=== PATIENT | female | born 1970 | race Caucasian/White ===

== ENCOUNTER → 2017-01-16 10:15 | Outpatient (CLI) | payer MEDICAID | END | disposition home or self-care (01) | LOC: D.NM 08:00 | DX: R10.11 Right upper quadrant pain (principal) ==

== ENCOUNTER 2018-07-06 10:55 | Emergency (ER) | payer MEDICAID ==
[~2018-07-06] VITALS: Ht 165.1 cm; Wt 75.3 kg
[2018-07-06 11:08] VITALS: Ht 165.1 cm; Wt 75.3 kg
[2018-07-06] MEDS ORDERED: CATAPRES0.1 MG (11:09)
[2018-07-06] MEDS ORDERED: PRAVACHOL20 MG (11:09)
[2018-07-06] MEDS ORDERED: OMEPRAZOLE20 M1 (11:09)
[2018-07-06] MEDS ORDERED: ATIVAN0.5 MG (11:09)
[2018-07-06] MEDS ORDERED: PREDNISONE10 MG PO (12:56)
[2018-07-06] MEDS ORDERED: PEPCID AC20 MG PO (12:56)
[2018-07-06 13:10] VITALS: BP 129/90
[2018-07-07] MEDS ORDERED: STERAPRED 5MG 65 M1 PO (21:38)
[2018-07-07] MEDS ORDERED: VISTARIL25 MG PO (21:39)
== END 2018-07-06 13:10 | disposition home or self-care (01) ==
LOC: D.ER 10:55
DX: T78.40XA Allergy, unspecified, initial encounter (principal); X58.XXXA Exposure to other specified factors, initial encounter

== ENCOUNTER 2018-07-07 17:36 | Emergency (ER) | payer MEDICAID ==
[~2018-07-07] VITALS: Ht 165.1 cm; Wt 75.5 kg
[~2018-07-07 17:36] MED LIST: ATIVAN0.5 MG; CATAPRES0.1 MG; OMEPRAZOLE20 M1; PEPCID AC20 MG PO; PRAVACHOL20 MG; PREDNISONE10 MG PO
[2018-07-07 17:52] VITALS: Ht 165.1 cm; Wt 75.5 kg
[2018-07-07 19:53] LABS: BASOPHILS 0 % (0-2); EOSINOPHILS 0 % (0-7); HEMATOCRIT 39.7 % (36.0-48.0); HEMOGLOBIN 14.1 g/dL (12-16); IMMATURE GRANULOCYTES 0.7 % (0-5); LYMPHOCYTES 11.8 % (15-50); MCH 31.3 pg (26.0-34.0); MCHC 35.5 g/dL (31.0-37.0); MEAN PLATELET VOLUME 10.7 fL (7.4-10.4); MONOCYTES 5.9 % (2-11); NEUTROPHILS 81.6 % (40-80); PLATELET COUNT 337 10x3/uL (130-400); RBC 4.51 10x6/uL (4.00-5.40); RDW 12.3 % (11.5-14.5); WBC 21.4 10x3/uL (4.8-10.8)
[2018-07-07 20:09] LABS: ALBUMIN 3.6 g/dL (3.4-5.0); ALKALINE PHOSPHATASE 73 U/L (46-116); ALT (SGPT) 32 U/L (10-68); BILIRUBIN - TOTAL 0.32 mg/dL (0.2-1.3); CALC OSMOLALITY 282 mosm/kg (275-300); CALCIUM 8.9 mg/dL (8.5-10.1); CARBON DIOXIDE 25.9 mmol/L (21.0-32.0); CHLORIDE - SERUM 106 mmol/L (98-107); CREATININE - SERUM 0.8 mg/dL (0.6-1.3); GLUCOSE 115 mg/dL (74-106); PROTEIN - SERUM 7.7 g/dL (6.4-8.2); SODIUM 142 mmol/L (136-145); UREA NITROGEN 11 mg/dL (7-18); eGFR NON AFRICAN AMERICAN 81 mL/min (90-120)
[2018-07-07 20:58] LABS: APPEARANCE CLEAR (CLEAR); BILIRUBIN NEGATIVE (NEGATIVE); COLOR YELLOW (YELLOW); GLUCOSE NEGATIVE (NEGATIVE); KETONE NEGATIVE (NEGATIVE); NITRITE NEGATIVE (NEGATIVE); PROTEIN NEGATIVE (NEGATIVE); UROBILINOGEN NORMAL (NORMAL)
[2018-07-07] MEDS ORDERED: STERAPRED 5MG 65 M1 PO (21:38)
[2018-07-07] MEDS ORDERED: VISTARIL25 MG PO (21:39)
[2018-07-07 21:51] VITALS: BP 129/83
== END 2018-07-07 21:51 | disposition home or self-care (01) ==
LOC: D.ER 17:36
PROVIDERS: Family Medicine
DX: L50.9 Urticaria, unspecified (principal); T78.40XA Allergy, unspecified, initial encounter; X58.XXXA Exposure to other specified factors, initial encounter; R05 Cough

== ENCOUNTER 2018-10-29 21:53 | Observation (INO) | payer MEDICAID ==
[~2018-10-29] VITALS: Ht 165.1 cm; Wt 79.1 kg
--- NOTE | ~2018-10-29 | HEMODYNAMI ---
PATIENT:RADHA BARRAZA MEDICAL RECORD: [id number] : 72 [facility]ATION[facility] [id number] ADMISSION DATE: 10/29/18 Generatedon:10/30/201814:04 Patient name: RADHA BARRAZA Patient #: [id number] SSN: : 1970 Date of study: 10/30/2018 Page: Of Hemodynamic Procedure Report Patient Data Patient Demographics Procedure consent was obtained First Name: RADHA Gender: Female Last Name: CHRISTI : 1970 Middle Initial: E Age: 48 year(s) Patient #: [id number] Race: Additional ID: [id number] Contact details Address: [address] [place] [address] State: [place] City: [place] Zip code: [address] Past Medical History Allergies Allergen Reaction Date Comments Reported Other allergy 10/30/2018 Vancomycin Admission Admission Data Admission Date: 10/29/2018 Admission Time: 23:13 Room #: D[facility] Lab Results Lab Result Date: 10/30/2018 Lab Result Time: 0:00 Biochemistry Name Units Result Min Max BUN mg/dl 20 --(----)*- 7 18 Creatinine mg/dl 0.8 --(-*--)-- 0.6 1.3 CBC Name Units Result Min Max Hemoglobin g/dl 13.6 --(*---)-- 13.5 17.5 Procedure Procedure Types Cath Procedure Diagnostic Procedure LHC LH w/Coronaries PCI Procedure Coronary Stent Coronary Stent Initial Procedure Description Procedure Date Procedure Date: 10/30/2018 Procedure Start Time: 13:47 Procedure End Time: 14:02 Procedure Staff Name Function Mook Cabrera MD Performing Physician Kelly Joaquin RT Monitor Shana Mcnulty RT Scrub Adolfo Morrison RT Scrub Kole Grey RN Nurse Procedure Data Cath Procedure Fluoroscopy Diagnostic fluoroscopy Total fluoroscopy Time: 3.6 time: 3.6 min min Diagnostic fluoroscopy Total fluoroscopy dose: 320 dose: 320 mGy mGy Contrast Material Contrast Material Type Amount (ml) Isovue 300 71 Entry Location Entry Primary Successful Side Size Upsize Upsize Entry Closure [place] ccessful Closure Location (Fr) 1 (Fr) 2 (Fr) Remarks Device Remarks Radial Right 6 Fr Mechanical artery Short Compression Estimated blood loss: 10 ml Diagnostic catheters Device Type Used For End Catheter Placement DIAGNOSTIC [place] 110cm 5 Procedure Fr catheter ([id number]) Procedure Complications No complications Procedure Medications Medication Administration Route Dosage Oxygen etCO2 Nasal cannula 2 l/min Lidocaine 2% added to field 20 Heparin Flush Bag added to field 2 bags (1000units/500ml NS) 0.9% NaCl I.V. 100 ml/hr Radial Cocktail I.A. 1 syringe (Verapomil 2mg/Nitro 400mcg/Heparin 1500units) Versed I.V. 2 mg Fentanyl I.V. 100 mcg Versed I.V. 2 mg Fentanyl I.V. 100 mcg Heparin Bolus I.V. 4000 units Lopressor I.V. 5 mg Plavix P.O. 75 mg Hemodynamics Rest HGB: 13.6 (g/dl) Heart Rate: 75 (bpm) Snapshots Pre Cath Intra NCS Post Cath Vital Signs Time Heart Resp SPO2 etCO2 NIBP (mmHg) Rhythm Pain Sedation Rate (ipm) (%) (mmHg) Status Level (bpm) 13:17:58 76 18 98 29.9 132/73(95) NSR 0 (11) 10(A) , No pain 13:22:11 75 24 95 33.7 142/78(96) NSR 0 (11) 10(A) , No pain 13:26:29 84 19 95 34.4 162/77(118) NSR 0 (11) 10(A) , No pain 13:31:47 79 29 97 27.5 144/74(104) NSR 0 (11) 10(A) , No pain 13:36:07 80 25 96 29.1 136/74(89) NSR 0 (11) 10(A) , No pain 13:40:23 92 14 99 37.5 157/79(123) NSR 0 (11) 10(A) , No pain 13:44:45 82 14 100 36 150/81(114) NSR 0 (11) 10(A) , No pain 13:49:06 91 22 98 30.6 119/71(101) NSR 0 (11) 9(A) , No pain 13:53:18 102 16 98 38.3 122/67(100) NSR 0 (11) 9(A) , No pain 13:57:27 96 15 97 32.9 134/80(107) NSR 0 (11) 9(A) , No pain 14:02:39 92 15 99 36.7 141/76(101) NSR 0 (11) 10(A) , No pain Medications Time Medication Route Dose Verified Delivered Reason Not es Effectiveness by by 13:16:19 Oxygen etCO2 2 l/min Mook Sharif used for Nasal Deborah Grey RN procedure cannula 13:16:26 Lidocaine 2% added 20ml Mook Delvalle for local to vial Deborah Cabrera MD anesthetic field 13:16:33 Heparin Flush added 2 bags Mook Delvalle used for Bag to Deborah Cabrera MD procedure (1000units/500ml field NS) 13:16:42 0.9% NaCl I.V. 100 Mook Sharif Per physician ml/hr Deborah Grey RN 13:47:10 Versed I.V. 2 mg Mook Sharif for sedation Deborah Grey RN 13:47:17 Fentanyl I.V. 100 mcg Mook Sharif for sedation Deborah Grey RN 13:49:04 Radial Cocktail I.A. 1 Mook Delvalle for (Verapomil syringe Deborah Cabrera MD vasodilation 2mg/Nitro 400mcg/Heparin 1500units) 13:50:34 Versed I.V. 2 mg Mook Sharif for sedation Deborah Grey RN 13:50:38 Fentanyl I.V. 100 mcg Mook Sharif for sedation Deborah Grey RN 13:55:49 Heparin Bolus I.V. 4000 Mook Sharif for gage ified units Deborah Grey RN anticoagulation with dr cabrera 13:58:02 Lopressor I.V. 5 mg Mook Sharif Per physician Deborah Grey RN 14:01:38 Plavix P.O. 75 mg Mook Sharif for Deborah Grey RN antiplatelet therapy Procedure Log Time Note 12:52:56 Informed consent obtained and on chart 12:53:01 Diagnostic Cath Status : Elective 12:53:26 Kelly LAWSON(R) sent for patient. Start room use. 12:53:27 Time tracking: Regular hours (M-F 7:00 - 5:00) 12:53:31 Plan of Care:Hemodynamics will remain stable., Cardiac rhythm will remain stable., Comfort level will be maintained., Respiratory function will remain adequate., Patient/ family verbilizes understanding of procedure., Procedure tolerated without complication., Recovers from procedure without complications.. 12:59:26 Patient received from ED to CCL 2 Alert and oriented. Tansferred to table in Supine position. 12:59:28 Warm blankets applied, and jennifer hugger turned on for patient comfort. 12:59:28 Correct patient and procedure confirmed by team. 12:59:29 ECG and BP/O2 sat monitors applied to patient. 13:16:19 Oxygen 2 l/min etCO2 Nasal cannula was administered by Kole Grey RN; used for procedure; 13:16:26 Lidocaine 2% 20ml vial added to field was administered by Mook Cabrera MD; for local anesthetic; 13:16:33 Heparin Flush Bag (1000units/500ml NS) 2 bags added to field was administered by Mook Cabrera MD; used for procedure; 13:16:42 0.9% NaCl 100 ml/hr I.V. was administered by Kole Grey RN; Per physician; 13:16:45 Vital chart was started 13:19:43 Baseline sample Acquired. 13:19:47 Rhythm: sinus rhythm 13:19:48 Full Disclosure recording started 13:19:54 H&P Date Dictated: 10/29/2018 Within 30 days and on chart., H&P Addendum completed by physician on day of procedure. (MUST COMPLETE FOR ALL OUTPATIENTS). 13:19:56 Pre-procedure instructions explained to patient. 13:19:59 Family in waiting room. 13:20:04 Patient NPO since Midnight. 13:20:22 Patient allergic to Other allergyVancomycin 13:20:25 Is the patient allergic to Iodine/contrast media? No. 13:20:27 Was the patient premedicated? Yes 13:20:28 Is patient on blood thinner?Yes 13:20:31 ACC The patient was administered the following blood thiners within the last 24 hours: ACCPlavix 13:20:50 Patient diabetic? No. 13:20:55 Snore? Yes 13:20:56 Sleep apnea? No 13:21:01 Dentures? No ? 13:21:17 IV patent on arrival in left forearm with 0.9% NaCl at [facility]. 13::45 Lab Result : Hemoglobin 13.6 g/dl 13::45 Lab Result : Creatinine 0.8 mg/dl 13::45 Lab Result : BUN 20 mg/dl 13::48 Lab results completed and on chart. 13:29:53 Right groin area was prepped with chlora-prep and draped in sterile fashion 13::58 Right Radial area was prepped with chlora-prep and draped in sterile fashion 13::59 Alarms reviewed by R. N. 13::59 Sharps counted by scrub and verified by R.N. 13:30:01 Physician paged 13:43:41 Zero performed for pressure channel P1 13:44:05 Zero performed for pressure channel P1 13:46:39 Physician arrived 13:46:40 --------ALL STOP TIME OUT------ 13:46:40 Final Timeout: patient, procedure, and site verified with staff and physician. All members of the team are in agreement. 13:46:43 Right Radial & Right Groin site verified by team. 13:46:48 Fire Safety Assessment: A--An alcohol-based skin anteseptic being used preoperatively., C--Open oxygen or nitrous oxide is being used., D--An ESU, laser, or fiber-optic light is being used. 13:46:52 Physical assessment completed. ASA score P 2 - A patient with mild systemic disease as per Mook Cabrera MD. 13:46:56 Sedation plan: IV Moderate Sedation Medication:Versed, Fentanyl 13:47:00 Use device set Radial Dx or PCI 13:47:03 Procedure started. 13:47:10 Versed 2 mg I.V. was administered by Kole Grey RN; for sedation; 13:47:17 Fentanyl 100 mcg I.V. was administered by Kole Grey RN; for sedation; 13:47:34 Local anesthetic to right radial artery with Lidocaine 2% by Mook Cabrera MD.INITIAL ACCESS ONLY 13:47:51 A 6 Fr Short sheath was inserted into the Right Radial artery 13:48:29 ACIST Syringe (50138) opened to sterile field. 13:48:30 Medline Cath Pack ([id number]) opened to sterile field. 13:48:30 Bag Decanter () opened to sterile field. 13:48:31 DIAGNOSTIC WIRE .035 260cm J wire (567916) opened to sterile field. 13:48:31 ACIST Hand Control (13966) opened to sterile field. 13:48:32 ACIST Manifold (03423) opened to sterile field. 13:48:33 Tegaderm 4 x 4 (1626W) opened to sterile field. 13:48:34 MBrace Wrist Support ([id number]) opened to sterile field. 13:48:37 SHEATH 6FR Slender (03-9821) opened to sterile field. 13:48:43 A DIAGNOSTIC [place] 110cm 5 Fr catheter (082226) was advanced over the wire and used for Procedure. 13:49:04 Radial Cocktail (Verapomil 2mg/Nitro 400mcg/Heparin 1500units) 1 syringe I.A. was administered by Mook Cabrera MD; for vasodilation; 13:49:38 LV angiography performed. 13:50:25 EF : 60 % 13:50:34 Versed 2 mg I.V. was administered by Kole Grey RN; for sedation; 13:50:38 Fentanyl 100 mcg I.V. was administered by Kole Grey RN; for sedation; 13:50:47 RCA angiography performed. 13:52:16 Catheter removed. 13:52:25 GUIDE 6FR XBC 3 ([id number]) opened to sterile field. 13:52:31 Proceeding to intervention. 13:52:48 6 Fr XBC3 guide catheter was inserted over the wire 13:53:32 whisper wire advanced. 13:53:34 Wire advanced across lesion. 13:53:57 INFLATOR Merit BasixCompak (QO2612) opened to sterile field. 13:55:49 Heparin Bolus 4000 units I.V. was administered by Kole Grey RN; for anticoagulation; verified with dr cabrera 13:57:17 WHISPER 300cm guide wire ([id number]) opened to sterile field. 13:57:57 Place stent Inflation Number: 1 A INTEGRITY OTW 2.5 X 22 stent ([id number]) was prepped and advanced across the Mid LAD. The stent was deployed at 13 PILAR for 0:04 (min:sec). 13:58:02 Lopressor 5 mg I.V. was administered by Kole Grey RN; Per physician; 14:00:25 ZEPHYR REGULAR TR BAND NO COST(129978) opened to sterile field. 14:00:33 Stent catheter was removed intact over wire. 14:00:33 Wire removed. 14:00:35 Guide catheter removed. 14:00:45 Sheath removed intact; hemostasis achieved with Mechanical Compression to the Right Radial artery. 14:00:47 Procedure ended.(Physican Out) 14:00:56 Fluoroscopy time 03.60 minutes. 14:01: Fluoroscopy dose: 320 mGy 14:01: Flurop Dose total: 320 14:01:07 Contrast amount:Isovue 300 71ml. 14:01:08 Sharps counted by scrub and verified by R.N. 14:01:12 TR band inflated with 12cc of air. 14:01:13 Insertion/operative site no bleeding no hematoma. 14:01:15 Post Procedure Pulses reassessed and unchanged 14:01:18 Post procedure rhythm: unchanged. 14:01:21 Estimated blood loss: 10 ml 14:01:38 Plavix 75 mg P.O. was administered by Kole Grey RN; for antiplatelet therapy; 14:01:43 Procedure type changed to Cath procedure, Diagnostic procedure, LHC, LHC w/Coronaries, PCI procedure, Coronary Stent, Coronary Stent Initial 14:01:45 Procedure and supply charges have been captured, reviewed, submitted and are correct. 14:02:10 Procedure Complication : No complications 14:02:13 Vital chart was stopped 14:02:13 See physician's report for complete and final results. 14:02:15 Report given to Pre/Post Procedure Room. 14:02:18 Patient transfered to Pre/Post Procedure Room with Stretcher. 14:02:20 Procedure ended. 14:02:20 Full Disclosure recording stopped 14:02:24 End room use (Document Last) 14:02:32 ACC-PCI Only Patient was given prescriptions, or instructed by Mook Cabrera MD to start/continue the following medications upon discharge: Plavix Intervention Summary Intervention Notes Time ActionType Lesion and Equipment Action# Pressure Duration Attributes Used 13:57:57 Place stent Mid LAD INTEGRITY 1 13 00:04 OTW 2.5 X 22 stent ([id number]) Device Usage Item Name Manufacture Quantity Catalog Hospital Part Current Minima l Lot# / Number Charge Number Stock Stock Serial# Code ACIST Acist 1 30312 909229 975933 280827 20 Syringe Medical (09470) Systems Inc Medline Cath Medline 1 [id number] 381114 50671 409221 5 Pack ([id number]) Bag Decanter Microtek 1 2001S 204554 25775 075498 5 (2001S) Medical Inc. DIAGNOSTIC St Jonathan 1 119124 900673 925153 653171 30 WIRE .035 260cm J wire (425087) ACIST Hand Acist 1 11644 385382 064274 937235 5 Control Medical (74465) Systems Inc ACIST Acist 1 92388 300921 044677 095292 5 Manifold Medical (34591) Systems Inc Tegaderm 4 x 3M 1 1626W 895445 478681 956916 5 4 (1626W) MBrace Wrist Advanced 1 140-0250-00 299474 43069 813481 5 Support Vascular (359849858) Dynamics SHEATH 6FR Terumo 1 [id number] 124627 403047 957423 5 Slender (80-1060) DIAGNOSTIC Terumo 1 405013 642069 811034 310899 5 [place] 110cm 5 Fr catheter (264120) GUIDE 6FR Cardinal 1 [id number] 694633 66330 641755 5 XB 3 Health (55886269) INFLATOR Merit 1 FK4588 630589 122100 097631 15 [facility] Medical BasixCompak (GE3596) WHISPER Diehl 1 [id number] 526554 052302 686574 5 300cm guide Vascular wire ([id number]) INTEGRITY Medtronic 1 [id number] 210751 572661 223238 1 [id number] OTW 2.5 X 22 stent ([id number]) ZEPHYR Cardinal 1 411165 207221 285634 5 REGULAR TR Health BAND NO COST(111086) Signature Audit [place] Stage Time Signature Unsigned Intra-Procedure 10/30/2018 Kelly Joaquin 2:04:33 PM RT(R) Signatures Monitor : Kelly Joaquin Signature : RT Date : Time : [address] [place] [address]
[~2018-10-29 21:53] MED LIST changes: +STERAPRED 5MG 65 M1 PO; +VISTARIL25 MG PO
[2018-10-29] MEDS ORDERED: CELEXA10 MG PO (22:12)
[2018-10-29 22:35] LABS: BASOPHILS 0.1 % (0-2); EOSINOPHILS 1.1 % (0-7); HEMATOCRIT 38.8 % (36.0-48.0); HEMOGLOBIN 13.6 g/dL (12-16); IMMATURE GRANULOCYTES 0.5 % (0-5); LYMPHOCYTES 28.3 % (15-50); MCH 30.8 pg (26.0-34.0); MCHC 35.1 g/dL (31.0-37.0); MEAN PLATELET VOLUME 10.2 fL (7.4-10.4); PLATELET COUNT 328 10x3/uL (130-400); RBC 4.41 10x6/uL (4.00-5.40); RDW 12.2 % (11.5-14.5); WBC 16.6 10x3/uL (4.8-10.8)
[2018-10-29 22:41] LABS: APTT 30.3 SECONDS (22.8-39.4); INR 0.95 (0.85-1.17); PROTIME 12.2 SECONDS (11.6-15.0)
[2018-10-29 22:50] LABS: ALBUMIN 3.2 g/dL (3.4-5.0); ALKALINE PHOSPHATASE 82 U/L (46-116); ALT (SGPT) 39 U/L (10-68); BILIRUBIN - TOTAL 0.59 mg/dL (0.2-1.3); CALC OSMOLALITY 279 mosm/kg (275-300); CALCIUM 8.4 mg/dL (8.5-10.1); CARBON DIOXIDE 25.5 mmol/L (21.0-32.0); CHLORIDE - SERUM 102 mmol/L (98-107); CREATININE - SERUM 0.8 mg/dL (0.6-1.3); GLUCOSE 113 mg/dL (74-106); POTASSIUM - SERUM 3.9 mmol/L (3.5-5.1); PROTEIN - SERUM 6.8 g/dL (6.4-8.2); SODIUM 138 mmol/L (136-145); UREA NITROGEN 20 mg/dL (7-18); eGFR NON AFRICAN AMERICAN 81 mL/min (90-120)
[2018-10-29 23:02] LABS: CKMB 0.2 U/L (0.0-3.6); CREATINE KINASE 18 UL (21-215)
[2018-10-29 23:03] LABS: TROPONIN-I < 0.017 ng/mL (0.000-0.060)
--- NOTE | 2018-10-29 23:06 | NUR ---
PT IN WITH C/O CHEST PAIN THAT STARTED YESTERDAY, WORSE TODAY, SPOUSE AT BEDSIDE. STATES THE PAIN RADIATES IN BETWEEN SHOULDER BLADES, HAS A FAMILY HISTORY OF HEART DISEASE. JESUS OLIVAREZ,
[2018-10-29 23:07] VITALS: BP 115/79
--- NOTE | 2018-10-29 23:58 | NUR ---
REPORT CALLED TO ER NURSE
[2018-10-30 00:36] VITALS: BP 123/78
[2018-10-30 01:00] VITALS: Ht 165.1 cm; Wt 79.1 kg
[2018-10-30] MEDS ORDERED: ATIVAN1 MG PO (01:11)
[2018-10-30] MEDS ORDERED: CATAPRES0.1 MG PO (01:12)
[2018-10-30] MEDS ORDERED: CELEXA20 MG PO (01:12)
[2018-10-30] MEDS ORDERED: OMEPRAZOLE40 MG PO (01:13)
[2018-10-30] MEDS ORDERED: PRAVACHOL20 MG PO (01:13)
[2018-10-30 04:00] VITALS: BP 110/72
[2018-10-30 05:02] LABS: BASOPHILS 0.2 % (0-2); EOSINOPHILS 1.6 % (0-7); HEMOGLOBIN 13.6 g/dL (12-16); IMMATURE GRANULOCYTES 0.5 % (0-5); MCH 30.4 pg (26.0-34.0); MCV 89.5 fL (80.0-100.0); MEAN PLATELET VOLUME 10.4 fL (7.4-10.4); MONOCYTES 6.1 % (2-11); NEUTROPHILS 59.6 % (40-80); PLATELET COUNT 315 10x3/uL (130-400); RBC 4.47 10x6/uL (4.00-5.40); RDW 12.3 % (11.5-14.5); WBC 14.6 10x3/uL (4.8-10.8)
[2018-10-30 05:32] LABS: ALBUMIN 3.1 g/dL (3.4-5.0); ALKALINE PHOSPHATASE 80 U/L (46-116); ALT (SGPT) 39 U/L (10-68); BILIRUBIN - TOTAL 0.57 mg/dL (0.2-1.3); CALC OSMOLALITY 281 mosm/kg (275-300); CALCIUM 8.5 mg/dL (8.5-10.1); CARBON DIOXIDE 27.3 mmol/L (21.0-32.0); CHLORIDE - SERUM 105 mmol/L (98-107); CKMB 0.5 U/L (0.0-3.6); CREATINE KINASE 20 UL (21-215); CREATININE - SERUM 0.8 mg/dL (0.6-1.3); GLUCOSE 107 mg/dL (74-106); POTASSIUM - SERUM 4.7 mmol/L (3.5-5.1); PROTEIN - SERUM 6.8 g/dL (6.4-8.2); SODIUM 140 mmol/L (136-145); TROPONIN-I < 0.017 ng/mL (0.000-0.060); UREA NITROGEN 20 mg/dL (7-18); eGFR NON AFRICAN AMERICAN 81 mL/min (90-120)
[2018-10-30 07:49] VITALS: BP 117/78
--- NOTE | 2018-10-30 08:45 | NUR ---
CONSENTS SIGNED FOR [facility]. WILL CONT. PLAN OF CARE.
[2018-10-30 11:25] VITALS: BP 113/75
[2018-10-30 11:38] LABS: CKMB 0.6 U/L (0.0-3.6); CREATINE KINASE 16 UL (21-215); TROPONIN-I < 0.017 ng/mL (0.000-0.060)
--- NOTE | 2018-10-30 13:11 | NUR ---
PRE-OPS GIVEN. TO AUDIT LEAD BY BED.
[2018-10-30] MEDS ORDERED: BAYER CHEWABLE81 MG PO (14:11)
[2018-10-30] MEDS ORDERED: PLAVIX75 MG PO (14:11)
--- NOTE | 2018-10-30 14:30 | NUR ---
RIGHT RADIAL Z BAND IN PLACE. NO BLEEDING/HEMATOMA NOTED. HEAD OF BED INC TO 30 DEGREES. VSS. SET UP WITH SANDWICH TRAY AND DRINK.
--- NOTE | 2018-10-30 15:00 | NUR ---
RIGHT WRIST Z BAND IN PLACE. NO BLEEDING/HEMATOMA NOTED. DENIES NAUSEA
--- NOTE | 2018-10-30 15:30 | NUR ---
PT REPORTS SHE NEEDS TO URINATE. REFUSING TO USE BEDPAN. SHE STATES SHE WILL HOLD IT UNTIL SHE CAN GET UP AND USE THE RESTROOM.
--- NOTE | 2018-10-30 16:33 | NUR ---
PT C/O PAIN IN RIGHT WRIST AT BAND SITE. REMOVED 1cc OF AIR. PT REPORTS THAT IT FEELS BETTER. NO BLEEDING OR HEMATOMA NOTED.
--- NOTE | 2018-10-30 16:38 | NUR ---
PT C/O RIGHT WRIST PAIN. REMOVED 2cc OF AIR FROM Z BAND. PT C/O INDIGESTION. NO BLEEDING/HEMATOMA NOTED AT RIGHT WRIST SITE.
--- NOTE | 2018-10-30 17:03 | NUR ---
PT GIVEN GI COCTAIL PER MD ORDER. 3cc OF AIR REMOVED FROM Z BAND. NO BLEEDING OR HEMATOMA NOTED. TOLERATING WELL. PT UP TO RESTROOM AND VOIDED WITHOUT DIFFICULTY.
--- NOTE | 2018-10-30 17:25 | NUR ---
RIGHT AC PIV D/C'D WITH CATH TIP INTACT. PT TOLERATED WELL. 3cc OF AIR REMOVED FROM Z BAND. NO BLEEDING/HEMATOMA NOTED.
--- NOTE | 2018-10-30 17:37 | NUR ---
DISCUSSED DISCHARGE INSTRUCTIONS WITH PT AND PT'S FAMILY. THEY VOICED UNDERSTANDING. RIGHT RADIAL Z BAND REMOVED AND DRESSING APPLIED. NO BLEEDING/HEMATOMA NOTED.
--- NOTE | 2018-10-30 17:50 | NUR ---
PT TAKEN DOWN TO VEHICLE BY WHEELCHAIR. RIGHT WRIST DRESSING C/D/I. NO S/S OF HEMATOMA NOTED. ALL BELONGINGS IN HAND.
--- NOTE | 2018-11-03 10:45 | OP ---
PATIENT NAME: RADHA BARRAZA MEDICAL RECORD: [id number] :72 LOCATION:[facility] ADMISSION DATE:10/29/18 SURGEON: LAURA RIDDLE MD DATE OF OPERATION: 10/30/2018 DATE OF SERVICE: 10/30/2018 PROCEDURES: 1. PTCA stent LAD. 2. Left heart catheterization. 3. Selective coronary angiography. 4. Left ventriculogram. DESCRIPTION OF PROCEDURE: After informed consent was obtained and after detailed explanation of risks, benefits as well as alternative therapies, the patient elected to proceed with angiogram and angioplasty. The right radial area was prepped and draped in normal sterile fashion. Right radial artery was cannulated via modified Seldinger technique with placement of 6-Belarusian sheath. All catheters exchanged through this sheath. FINDINGS: Left ventriculogram was performed in standard 30-degree [place] view, reveals good cardiac wall motion throughout all segments. Overall ejection fraction is estimated at 70%. SELECTIVE CORONARY ANGIOGRAPHY: 1. Left main is with no significant angiographic disease. 2. Left anterior descending has greater than 80% stenosis in mid vessel. 3. Left circumflex has moderate irregularities, but no flow-limiting stenosis. 4. Right coronary has moderate irregularities, but no flow-limiting stenosis. PTCA STENT OF THE LAD: The stent used was a 2.5 x 22-mm Integrity. Result was 0% residual stenosis. OVERALL IMPRESSION: Successful percutaneous transluminal angioplasty stent of the left anterior descending going from greater than 80% initial stenosis to 0% residual. TRANSINT:[id number] Voice Confirmation ID: [id number] DOCUMENT ID: [id number] LAURA RIDDLE MD at 1045 CC: [id number] DICTATION DATE: 10/30/18 1405 GRANULAR OPERATOR: 10/30/18 1441 DIS IN 10/30/18 [place] [id number]
--- NOTE | 2018-11-03 10:45 | DS ---
PATIENT:RADHA CISNEROS :72 MEDICAL RECORD: [id number] DISCHARGE SUMMARY ADMISSION DATE: 10/29/18 DISCHARGE DATE: 10/30/18 DIAGNOSES: 1. Angina. 2. Percutaneous transluminal coronary angioplasty stent left anterior descending this admission. 3. Shortness of breath, dyspnea on exertion. HOSPITAL COURSE: Mrs. Cisneros presents with anginal symptomatology, found to have significant disease of the LAD, underwent successful PTCA stent of the LAD. Discharged home with the addition of aspirin and Plavix to her medical regimen. Will follow up with [facility] in 1 month. TRANSINT:[id number] Voice Confirmation ID: [id number] DOCUMENT ID: [id number] LAURA RIDDLE MD at 1045 CC: [id number] DICTATION DATE: 10/30/18 1404 STOREPERSON: 10/31/18 0642 DIS IN 10/30/18 [id number] [place] [address]
== END 2018-10-30 17:50 | disposition home or self-care (01) ==
LOC: D.ER 21:53 → OBSVTIME 23:13 → D.M2 23:13 → D.EDHOLD 23:13 → D.M2 23:35 → D.CLR 10-30 14:10
PROVIDERS: Family Medicine; ADMIT Internal Medicine Interventional Cardiology
DX: I25.119 Atherosclerotic heart disease of native coronary artery with unspecified angina pectoris (principal)

== ENCOUNTER 2018-10-31 19:32 | Observation (INO) | payer MEDICAID ==
[~2018-10-31] VITALS: Ht 165.1 cm; Wt 78.6 kg
[~2018-10-31 19:32] MED LIST changes: +ATIVAN1 MG PO; +BAYER CHEWABLE81 MG PO; +CATAPRES0.1 MG PO; +CELEXA10 MG PO; +CELEXA20 MG PO; +OMEPRAZOLE40 MG PO; +PLAVIX75 MG PO; +PRAVACHOL20 MG PO
[2018-10-31 20:00] VITALS: BP 155/96
[2018-10-31 20:34] LABS: BASOPHILS 0.1 % (0-2); EOSINOPHILS 1.2 % (0-7); HEMATOCRIT 39.9 % (36.0-48.0); HEMOGLOBIN 13.7 g/dL (12-16); IMMATURE GRANULOCYTES 0.6 % (0-5); LYMPHOCYTES 31.8 % (15-50); MCH 30.8 pg (26.0-34.0); MCHC 34.3 g/dL (31.0-37.0); MCV 89.7 fL (80.0-100.0); MEAN PLATELET VOLUME 10.3 fL (7.4-10.4); MONOCYTES 5.9 % (2-11); NEUTROPHILS 60.4 % (40-80); PLATELET COUNT 309 10x3/uL (130-400); RBC 4.45 10x6/uL (4.00-5.40); RDW 12.2 % (11.5-14.5); WBC 14.6 10x3/uL (4.8-10.8)
[2018-10-31 20:45] LABS: APTT 29.9 SECONDS (22.8-39.4); INR 0.93 (0.85-1.17)
[2018-10-31 20:46] LABS: D-DIMER-QUANTITATIVE < 0.27 ug/mLFEU (0.20-0.54)
[2018-10-31 20:51] LABS: ALBUMIN 3.1 g/dL (3.4-5.0); ALKALINE PHOSPHATASE 80 U/L (46-116); ALT (SGPT) 33 U/L (10-68); BILIRUBIN - TOTAL 0.38 mg/dL (0.2-1.3); CALC OSMOLALITY 280 mosm/kg (275-300); CALCIUM 8.6 mg/dL (8.5-10.1); CARBON DIOXIDE 24.5 mmol/L (21.0-32.0); CHLORIDE - SERUM 104 mmol/L (98-107); CREATININE - SERUM 0.8 mg/dL (0.6-1.3); GLUCOSE 114 mg/dL (74-106); SODIUM 139 mmol/L (136-145); UREA NITROGEN 18 mg/dL (7-18); eGFR NON AFRICAN AMERICAN 81 mL/min (90-120)
[2018-10-31 20:52] LABS: POTASSIUM - SERUM 3.5 mmol/L (3.5-5.1)
--- NOTE | 2018-10-31 20:55 | NUR ---
NTG X 1 GIVEN
[2018-10-31 21:00] VITALS: BP 145/96
[2018-10-31 21:12] LABS: CKMB 0.9 U/L (0.0-3.6); CREATINE KINASE 18 UL (21-215); MAGNESIUM - SERUM 2.1 mg/dL (1.8-2.4)
[2018-10-31 21:15] LABS: TROPONIN-I 0.091 ng/mL (0.000-0.060)
[2018-10-31 22:36] VITALS: BP 129/91
--- NOTE | 2018-10-31 23:14 | NUR ---
PT ARRIVED VIA W/C FORM ER. NO DISTRESS NOTED. FAMILYA T BEDSIDE.
[2018-10-31 23:32] VITALS: BP 153/100; Ht 165.1 cm; Wt 78.6 kg
--- NOTE | 2018-10-31 23:50 | NUR ---
ADMISSIONA ASSESSMENT, HISTORY AND HOME MED LIST COMPLETED. PT DENIES ANY DISCOMFORT AT THIS TIME. IV TO LAC SL. SR PER CM HR 83. DRESSING TO R WRIST CLEAN,DRY AND INTACT. O2 2LNC. FAMILY AT BEDSIDE. SR UP X2, CALL LIGHT WITHIN REACH.
[2018-10-31 23:55] VITALS: BP 153/100
--- NOTE | 2018-11-01 02:40 | NUR ---
PT RESTING WITH EYES CLOSED. RESP EVEN AND REGULAR. SR UP X2, CALL LIGHT WITHIN REACH.
[2018-11-01 03:31] LABS: CKMB 0.8 U/L (0.0-3.6); CREATINE KINASE 18 UL (21-215)
[2018-11-01 03:53] VITALS: BP 140/86
--- NOTE | 2018-11-01 04:46 | NUR ---
SR PER CM. PT DENIES ANY DISCOMFORT. EKG MACHINE NOT WORKING. EKG DONE VIA TELEMETRY. NSR. SPOUSE AT BEDSIDE.
--- NOTE | 2018-11-01 06:03 | NUR ---
VSS. SR PER CM. PT DENIES ANY DISCOMFORT. NEEDS MET; CALL LIGHT WITHIN REACH.
--- NOTE | 2018-11-01 06:36 | NUR ---
PT HAS C/O RIVAS, CHEST AND BACK PRESSURE. MORPHINE 4MG SIVP GIVEN. WILL CONTINUE TO MONITOR.
[2018-11-01 08:20] VITALS: BP 136/92
--- NOTE | 2018-11-01 09:35 | NUR ---
RESTING QUIETLY NAD NOTED
--- NOTE | 2018-11-01 09:36 | NUR ---
RECEIVED PT WITH EYES CLOSED RESP UNLABORED NAD NOTED
[2018-11-01 09:54] LABS: CKMB 0.9 U/L (0.0-3.6); CREATINE KINASE 19 UL (21-215)
[2018-11-01 09:55] LABS: TROPONIN-I 0.076 ng/mL (0.000-0.060)
[2018-11-01] MEDS ORDERED: LISINOPRIL10 MG PO ×2 (11:17→11:18)
[2018-11-01] MEDS ORDERED: METOPROLOL TART50 MG PO (11:17)
[2018-11-01] MEDS ORDERED: METOPROLOL TART25 MG PO (11:18)
--- NOTE | 2018-11-01 11:44 | NUR ---
DISCHARGE PRESCRIPTIONS GIVEN BY ARE TO BE TAKEN IN ADDITION TO WHAT PATIENT CURRENTLY TAKES. PATIENTS CURRENT ORDER IS FOR LOPRESSOR 25MG BID, SCRIPT RECEIVED FOR LOPRESSOR 25MG BID. NEW CURRENT ORDER FOR PATIETN IS TO TAKE LOPRESSOR 50MG BID. ALSO PROVIDED TO PATIENT PRESCRIPTION FOR LISINOPRIL 10MG BID. COPIES OF PRESCRIPTION ATTACHED TO DISCHARGE PAPERWORK. ORDERS DISCUSSED WITH PATIENTS NURSEILENE.
--- NOTE | 2018-11-01 12:13 | NUR ---
REVIEWED DISCHARGE INSTRUCTIONS WITH PT STATES UNDERSTANDING COPY GIVEN DCD SALINE LOCK TO LAC WITH IV CATHETER INTACT SITE FREE OF REDNESS OR EDEMA PT DISCHARGED HOME IN STABLE CONDITION VIA W/C WITH ALL PERSONAL BELONGINGS
--- NOTE | 2018-11-02 10:14 | MORECARE ---
CASE MANAGEMENT DISCHARGE SUMMARY PATIENT: RADHA BARRAZA UNIT: [id number] ADM DATE: 10/31/18 AGE: 48 : 72 SEX: F ROOM/BED: D.2032 AUTHOR: MADDIE MORE PHYSICIAN: REFERRING PHYSICIAN: LAURA RIDDLE MD DATE OF SERVICE: 11/02/18 Discharge Plan Patient Name: RAD[facility] BARRAZA [facility] [facility] 1970 Planned Disposition: Home Anticipated Discharge Date: 11/01/18 Discharge Date: 11/01/2018 Expected LOS: 1 Initial Reviewer: [email or web address] Initial Review Date: 11/02/2018 Generated: 11/02/18 11:14 am Patient Name: RADHA BARRAZA Page [id number] at 1014 All edits/amendments must be made on the electronic document DICTATION DATE: 11/02/18 1014 CAREER DEVELOPMENT CONSULTANT: OSCAR 11/02/18 1014 RPT#: [id number] DC DATE:11/01/18 STATUS: DIS IN [facility] [address] [place] [address] END OF REPORT
--- NOTE | 2018-11-03 10:45 | DS ---
PATIENT:RADHA CISNEROS :72 MEDICAL RECORD: [id number] DISCHARGE SUMMARY ADMISSION DATE: 10/31/18 DISCHARGE DATE: 11/01/18 ROE OF SERVICE: 11/01/2018. DIAGNOSES: 1. Chest pain compatible with angina. 2. Hypertension. 3. Coronary artery disease. 4. Hyperlipidemia. HOSPITAL COURSE: Mrs. Cisneros presents with chest pain in conjunction with episodes of hypertension and tachycardia. She was started on Lopressor and lisinopril. Her blood pressure and heart rate were controlled. She had no further chest pain. She had no ST-T abnormalities on her EKG. Discharged home with the addition of lisinopril and Lopressor to her medical regimen. Will follow up in 1 [facility] with [facility]. TRANSINT:[id number] Voice Confirmation ID: [id number] DOCUMENT ID: [id number] LAURA RIDDLE MD at 1045 CC: [id number] DICTATION DATE: 11/01/18 1254 DATA WAREHOUSE ADMINISTRATOR: 11/02/18 0209 DIS IN 11/01/18 [place] [id number]
--- NOTE | 2018-11-03 10:45 | HP ---
PATIENT: RADHA CISNEROS MEDICAL RECORD: [id number] ACCOUNT: [id number] LOCATION:[address] : 72 ADMISSION DATE: 10/31/18 PCP: GRACY HICKS MD HISTORY AND PHYSICAL EXAMINATION DIAGNOSES: 1. Chest pain, compatible with angina. 2. Hypertension. 3. Coronary artery disease. 4. Recent PTCA and stent to her LAD. 5. Hyperlipidemia. HISTORY: Mrs. Cisneros presents with recurrent chest pain. She presented earlier this week with chest pain. She was found to have significant disease of the LAD and underwent successful PTCA and stent of the LAD. Her chest pain is present when her blood pressure goes up. She has systolic blood pressures that go up to 180, diastolics over 100. She was on clonidine for hot flashes. When she takes the clonidine, her blood pressure goes down and the chest pain resolves. She has, as well, been tachycardic with her hypertension. She is on nothing ongoing for blood pressure. She is only on the clonidine for hot flashes, which she has learned to take when her blood pressure goes up and she has her symptomatology. Her EKG is with no ST-T changes. PHYSICAL EXAMINATION: GENERAL APPEARANCE: Well-nourished, well-developed, appears stated age. Level of distress, comfortable. PSYCHIATRIC: Mental status, alert, normal affect. Orientation, oriented to time, place and person. EYES: Lids and conjunctiva, noninjected. No discharge, no pallor. ENT: Lips, teeth, gums, normal dentition. Oropharynx, no cyanosis, no pallor. NECK: Carotid arteries, bilateral normal upstroke, no bruits, no thrills. JUGULAR VEINS: No jugular venous pressure or distention. CERVICAL LYMPH NODES: Nontender, nonenlarged. THYROID: Not enlarged. Nontender. No nodules. LUNGS: Respiratory effort, unlabored. CHEST: Normal curvature. No thoracic deformity. No chest wall tenderness. Percussion, resonant. Auscultation, clear. No wheezes, no rales, no rhonchi. CARDIOVASCULAR: Precordial exam, nondisplaced. No heaves or pericardial thrills. Rate and rhythm, regular. Heart sounds, normal S1, normal S2. No S3, no gallop, no rub. Systolic murmur, not heard. Diastolic murmur, not heard. EXTREMITIES: No cyanosis, no edema. Peripheral pulses, full and equal in all extremities, except as noted. No bruits appreciated. ABDOMEN: Soft, nondistended. Normal aorta. No bruit. Nontender. No masses. Liver, nontender, no hepatomegaly. Spleen, nontender, no splenomegaly. MUSCULOSKELETAL: No joint tenderness. No joint swelling. No erythema. NEUROLOGICAL: Normal gait, normal strength, normal tone. SKIN: Warm and dry. OVERALL IMPRESSION: Chest pain compatible with hypertension. At this time, we will start her on Lopressor and lisinopril. Do not need for repeat coronary angiography. We will treat medically for the blood pressure and heart rate. TRANSINT:[id number] Voice Confirmation ID: [id number] DOCUMENT ID: [id number] HISTORY AND PHYSICAL [id number] RADHA CISNEROS, LAURA BRAY at 1045 CC: [id number] DICTATION DATE: 11/01/18 1254 HOTEL CLERK: 11/01/18 1318 DIS IN 11/01/18 [facility] [address] [place] [address]
== END 2018-11-01 12:13 | disposition home or self-care (01) ==
LOC: D.ER 19:32 → D.EDHOLD 21:49 → OBSVTIME 21:49 → D.EDHOLD 21:49 → D.M2 22:14
PROVIDERS: Emergency Medicine; ADMIT Internal Medicine Interventional Cardiology
DX: R07.89 Other chest pain (principal); I10 Essential (primary) hypertension; R00.0 Tachycardia, unspecified; I25.10 Atherosclerotic heart disease of native coronary artery without angina pectoris; E78.5 Hyperlipidemia, unspecified

== ENCOUNTER 2018-11-05 15:15 | Observation (INO) | payer MEDICAID ==
[~2018-11-05] VITALS: Ht 165.1 cm; Wt 77.3 kg
--- NOTE | ~2018-11-05 | HEMODYNAMI ---
PATIENT:RADHA BARRAZA MEDICAL RECORD: [id number] : 72 [address] [id number] ADMISSION DATE: 11/05/18 Generatedon:11/06/201810:27 Patient name: RADHA BARRAZA Patient #: [id number] SSN: : 1970 Date of study: 11/06/2018 Page: Of Hemodynamic Procedure Report Patient Data Patient Demographics Procedure consent was obtained First Name: RADHA Gender: Female Last Name: CHRISTI : 1970 Middle Initial: E Age: 48 year(s) Patient #: [id number] Race: Additional ID: [id number] Contact details [address]: [address] [place] [address] State: [place] City: [place] Zip code: [address] Past Medical History Allergies Allergen Reaction Date Comments Reported Other allergy 10/30/2018 Vancomycin Admission Admission Data Admission Date: 11/05/2018 Admission Time: 16:30 Room #: [facility] Procedure Procedure Types Cath Procedure Diagnostic Procedure C LHC w/Coronaries Procedure Description Procedure Date Procedure Date: 11/06/2018 Procedure Start Time: 10:18 Procedure End Time: 10:26 Procedure Staff Name Function Mook Cabrera MD Performing Physician Amparo Hernández RT Monitor Patricia Baltazar RN Nurse Shana Mcnulty RT Scrub Tamiko Mata RT Scrub John Peter RT [employer] Bookkeeper Procedure Data Cath Procedure Fluoroscopy Diagnostic fluoroscopy Total fluoroscopy Time: 2.4 time: 2.4 min min Diagnostic fluoroscopy Total fluoroscopy dose: 117 dose: 117 mGy mGy Contrast Material Contrast Material Type Amount (ml) Isovue 300 45 Entry Location Entry Primary Successful Side Size Upsize Upsize Entry Closure Kapadia ccessful Closure Location (Fr) 1 (Fr) 2 (Fr) Remarks Device Remarks Radial Right 6 Fr Mechanical artery Short Compression Estimated blood loss: 5 ml Diagnostic catheters Device Type Used For End Catheter Placement DIAGNOSTIC Shell 110cm 5 LV Angiography Fr catheter ([id number]) DIAGNOSTIC Shell 110cm 5 Right Coronary Fr catheter (009342) Angiography DIAGNOSTIC Shell 110cm 5 Left Coronary Fr catheter ([id number]) Angiography Procedure Complications No complications Procedure Medications Medication Administration Route Dosage 0.9% NaCl I.V. 100 ml/hr Oxygen etCO2 Nasal cannula 2 l/min Lidocaine 2% added to field 20 Heparin Flush Bag added to field 2 bags (1000units/500ml NS) Radial Cocktail added to field 1 syringe (Verapomil 2mg/Nitro 400mcg/Heparin 1500units) Versed I.V. 2 mg Fentanyl I.V. 50 mcg Versed I.V. 2 mg Fentanyl I.V. 50 mcg Hemodynamics Rest HGB: 13.6 (g/dl) Heart Rate: 74 (bpm) Snapshots Pre Cath Intra NCS Post Cath Vital Signs Time Heart Resp SPO2 etCO2 NIBP (mmHg) Rhythm Pain Sedation Rate (ipm) (%) (mmHg) Status Level (bpm) 10:04:46 78 17 100 32.7 144/89(118) NSR 0 (11) 10(A) , No pain 10:08:58 77 18 98 25 122/81(102) NSR 0 (11) 10(A) , No pain 10:13:08 89 19 98 37.2 118/87(105) NSR 0 (11) 10(A) , No pain 10:17:22 85 13 97 26 109/73(90) NSR 0 (11) 10(A) , No pain 10:21:31 91 17 97 43.9 101/72(96) NSR 0 (11) 9(A) , No pain 10:25:39 101 15 98 36 121/68(89) NSR 0 (11) 10(A) , No pain Medications Time Medication Route Dose Verified Delivered Reason Notes E ffectiveness by by 10:03:46 0.9% NaCl I.V. 100 Mook Patricia used for ml/hr Deborah Baltazar state game warden 10:03:53 Oxygen etCO2 2 l/min Mook Patricia used for Nasal Deborah Baltazar procedure cannula RN 10:03:58 Lidocaine 2% added 20ml Mook Delvalle for local to vial Deborah Cabrera MD anesthetic field 10:04:04 Heparin Flush added 2 bags Mook Delvalle used for Bag to Deborah Cabrera MD procedure (1000units/500ml field NS) 10:07:44 Radial Cocktail added 1 Mook Delvalle used for (Verapomil to syringe Deborah Cabrera MD procedure 2mg/Nitro field 400mcg/Heparin 1500units) 10:14:35 Versed I.V. 2 mg Mook Dugana for Deborah Baltazar sedation RN 10:14:44 Fentanyl I.V. 50 mcg Mook Gustafsonyla for Deborah Baltazar sedation RN 10:20:17 Versed I.V. 2 mg Mook Gustafsonyla for Deborah Baltazar sedation RN 10:20:21 Fentanyl I.V. 50 mcg Mook Patricia for Deborah Baltazar sedation hairmasters manager Log Time Note 9:40:29 John Peter RT(R) sent for patient. Start room use. 9:54:41 Time tracking: Regular hours (M-F 7:00 - 5:00) 9:54:45 Plan of Care:Hemodynamics will remain stable., Cardiac rhythm will remain stable., Comfort level will be maintained., Respiratory function will remain adequate., Patient/ family verbilizes understanding of procedure., Procedure tolerated without complication., Recovers from procedure without complications.. 9:54:52 Patient received from PCU to CCL 1 Alert and oriented. Tansferred to table in Supine position. 9:54:53 Warm blankets applied, and jennifer hugger turned on for patient comfort. 9:54:53 Correct patient and procedure confirmed by team. 9:54:54 Signed procedure consent form obtained from patient. 9:54:55 ECG and BP/O2 sat monitors applied to patient. 9:54:56 Full Disclosure recording started 10:03:37 Vital chart was started 10:03:46 0.9% NaCl 100 ml/hr I.V. was administered by Patricia Baltazar RN; used for procedure; 10:03:53 Oxygen 2 l/min etCO2 Nasal cannula was administered by Patricia Baltazar RN; used for procedure; 10:03:58 Lidocaine 2% 20ml vial added to field was administered by Mook Cabrera MD; for local anesthetic; 10:04:04 Heparin Flush Bag (1000units/500ml NS) 2 bags added to field was administered by Mook Cabrera MD; used for procedure; 10:05:52 Baseline sample Acquired. 10:05:54 Rhythm: sinus rhythm 10:06:02 H&P Date Dictated: 11/05/2018 Within 30 days and on chart.. 10:06:03 Pre-procedure instructions explained to patient. 10:06:04 Pre-op teaching completed and patient verbalized understanding. 10:06:06 Family in patients room. 10:06:08 Patient NPO since Midnight. 10:06:13 Is patient on blood thinner?Yes 10:06:15 ACC The patient was administered the following blood thiners within the last 24 hours: ACCPlavix 10:06:17 Patient diabetic? No. 10:06:23 Previous problem with sedation/anesthesia? No ? 10:06:24 Snore? Yes 10:06:25 Sleep apnea? No 10:06:26 Deviated septum? No 10:06:27 Opens mouth fully? Yes 10:06:27 Sticks out tongue? Yes 10:06:30 Airway obstruction? No ? 10:06:31 Dentures? No ? 10:07:02 Pre procedure: right dorsailis pedis pulse 2+ Normal; easily identifiable; not easily obliterated 10:07:44 Radial Cocktail (Verapomil 2mg/Nitro 400mcg/Heparin 1500units) 1 syringe added to field was administered by Mook Cabrera MD; used for procedure; 10:08:44 Patient pain scale 0/10 ?. 10:08:49 Modified Star's test Radial < 7 seconds 10:09:18 IV patent on arrival in right forearm with 0.9% NaCl at KVO. 10:09:21 Lab results completed and on chart. 10:09:32 Right Radial & Right Groin area was prepped with chlora-prep and draped in sterile fashion 10:09:33 Alarms reviewed by R. N. 10:09:34 Sharps counted by scrub and verified by R.N. 10:09:59 Use device set Radial Dx or PCI 10:10:00 ACIST Syringe (91006) opened to sterile field. 10:10:00 Medline Cath Pack ([id number]) opened to sterile field. 10:10:01 Bag Decanter (2002S) opened to sterile field. 10:10:01 DIAGNOSTIC WIRE .035 260cm J wire (110579) opened to sterile field. 10:10:02 ACIST Hand Control (52101) opened to sterile field. 10:10:03 ACIST Manifold (42499) opened to sterile field. 10:10:04 Tegaderm 4 x 4 (1626W) opened to sterile field. 10:10:04 MBrace Wrist Support ([id number]) opened to sterile field. 10:10:05 SHEATH 6FR Slender (16-5464) opened to sterile field. 10:13:41 Final Timeout: patient, procedure, and site verified with staff and physician. All members of the team are in agreement. 10:13:43 Right Radial site verified by team. 10:13:56 Fire Safety Assessment: A--An alcohol-based skin anteseptic being used preoperatively., C--Open oxygen or nitrous oxide is being used., D--An ESU, laser, or fiber-optic light is being used. 10:13:59 Physical assessment completed. ASA score P 2 - A patient with mild systemic disease as per Mook Cabrera MD. 10:14:02 Sedation plan: IV Moderate Sedation Medication:Versed, Fentanyl 10:14:35 Versed 2 mg I.V. was administered by Patricia Baltazar RN; for sedation; 10:14:44 Fentanyl 50 mcg I.V. was administered by Patricia Baltazar RN; for sedation; 10:17:08 Zero performed for pressure channel P1 10:18:16 Procedure started. 10:18:21 Local anesthetic to right radial artery with Lidocaine 2% by Mook Cabrera MD.INITIAL ACCESS ONLY 10:18:29 A 6 Fr Short sheath was inserted into the Right Radial artery 10:19:40 A DIAGNOSTIC Shell 110cm 5 Fr catheter (254324) was advanced over the wire and used for LV Angiography. 10:20:17 Versed 2 mg I.V. was administered by Patricia Baltazar RN; for sedation; 10:20:21 Fentanyl 50 mcg I.V. was administered by Patricia Baltazar RN; for sedation; 10:21:05 LV gram done using CARRASCO 10:21:10 Injector settings: Ml/sec: 7, Volume: 15, 10:21:15 EF : 60 % 10:21:34 A DIAGNOSTIC Shell 110cm 5 Fr catheter (252855) was advanced over the wire and used for Right Coronary Angiography. 10:22:31 A DIAGNOSTIC Shell 110cm 5 Fr catheter (305082) was advanced over the wire and used for Left Coronary Angiography. removed unable to cannulate 10:22:46 GUIDE 6FR XBC 3 ([id number]) opened to sterile field. 10:23:01 6 Fr XBC 3 guide catheter was inserted over the wire 10:24:05 LCA angiography performed. 10:24:17 Guide catheter removed. 10:24:26 Sheath removed intact; hemostasis achieved with Mechanical Compression to the Right Radial artery. 10:24:27 Procedure ended.(Physican Out) 10::45 Fluoroscopy time 02.40 minutes. 10:24:49 Flurop Dose total: 117 10:24:49 Fluoroscopy dose: 117 mGy 10:24:52 Contrast amount:Isovue 300 45ml. 10:24:53 Sharps counted by scrub and verified by R.N. 10:24:54 Insertion/operative site no bleeding no hematoma. 10:25:01 Post right radial artery:stable, clean and dry 10:25:03 Post Procedure Pulses reassessed and unchanged 10:25:05 Post-procedure physical assessment completed. ASA score P 2 - A patient with mild systemic disease as per Mook Cabrera MD. 10:25:08 Post procedure rhythm: unchanged. 10:25:10 Estimated blood loss: 5 ml 10:25:12 Post procedure instruction explained to patient.Patient verbalizes understanding. 10:25:12 Patient needs reinforcement of post procedure teaching. 10:25:21 Procedure Complication : No complications 10:25:23 See physician's report for complete and final results. 10:25:29 TR BAND Standard ([id number]) opened to sterile field. 10:26:00 Procedure and supply charges have been captured, reviewed, submitted and are correct. 10:26:06 Vital chart was stopped 10:26:10 Report given to PCU. 10:26:13 Patient transfered to PCU with Bed. 10:26:27 Procedure ended. 10:26:27 Full Disclosure recording stopped 10:26:30 End room use (Document Last) Device Usage Item Name Manufacture Quantity Catalog Hospital Part Current Minimal Lot# / Number Charge Number Stock Stock Serial# Code ACIST Acist 1 [id number] 814815 [id number] 20 Rapport (94322) Navita Inc Medline Medline 1 [id number] 999371 73452 431795 5 Cath Pack ([id number]) Bag Microtek 1 2001S 866640 22349 694619 5 Decanter Medical Inc. () DIAGNOSTIC St Jonathan 1 755728 081915 735527 101437 30 WIRE .035 260cm J wire (162070) ACIST Hand Acist 1 72491 830684 076616 294004 5 Control Medical (00005) Systems Inc ACIST Acist 1 58507 957015 777305 026882 5 Manifold Medical (61435) Systems Inc Tegaderm 4 3M 1 1626W 429107 026066 139902 5 x 4 (1626W) MBrace Advanced 1 140-0250-00 536873 87505 309648 5 Wrist Vascular Support Dynamics ([id number]) SHEATH 6FR Terumo 1 [id number] 702590 399263 396129 5 Slender (801060) DIAGNOSTIC Terumo 1 40-1413 385378 171735 450916 5 Shell 110cm 5 Fr catheter (536815) GUIDE 6FR Cardinal [id number] [facility] 3 [facility] (55001705) TR BAND Terumo 1 [id number] 189496 251626 038964 40 Standard ([id number]) Signature Audit [place] Stage Time Signature Unsigned Intra-Procedure 11/06/2018 Amparo 10:27:09 AM Counts RT(R) Signatures Monitor : Amparo Signature : Counts RT Date : Time : [facility] [address] [place] [address]
[~2018-11-05 15:15] MED LIST changes: +LISINOPRIL10 MG PO; +METOPROLOL TART25 MG PO; +METOPROLOL TART50 MG PO
[2018-11-05 15:50] VITALS: BP 116/79
--- NOTE | 2018-11-05 15:50 | NUR ---
PT RATES CP 8/10 PRIOR TO FIRST PRN SL NITRO TABLET.
[2018-11-05 16:00] VITALS: BP 101/65
[2018-11-05 16:03] LABS: HEMATOCRIT 41.1 % (36.0-48.0); HEMOGLOBIN 14.5 g/dL (12-16); INR 1.03 (0.85-1.17); LYMPHOCYTES 35.8 % (15-50); MCH 30.9 pg (26.0-34.0); MCHC 35.3 g/dL (31.0-37.0); MCV 87.4 fL (80.0-100.0); MEAN PLATELET VOLUME 9.9 fL (7.4-10.4); PLATELET COUNT 346 10x3/uL (130-400); RDW 12.2 % (11.5-14.5); WBC 11.1 10x3/uL (4.8-10.8)
[2018-11-05 16:04] LABS: APTT 33.1 SECONDS (22.8-39.4)
[2018-11-05 16:08] LABS: ALBUMIN 3.3 g/dL (3.4-5.0); ALKALINE PHOSPHATASE 74 U/L (46-116); ALT (SGPT) 35 U/L (10-68); BILIRUBIN - TOTAL 0.96 mg/dL (0.2-1.3); CALC OSMOLALITY 285 mosm/kg (275-300); CALCIUM 8.8 mg/dL (8.5-10.1); CHLORIDE - SERUM 104 mmol/L (98-107); CREATININE - SERUM 0.9 mg/dL (0.6-1.3); GLUCOSE 92 mg/dL (74-106); PROTEIN - SERUM 7.3 g/dL (6.4-8.2); SODIUM 141 mmol/L (136-145); UREA NITROGEN 27 mg/dL (7-18); eGFR NON AFRICAN AMERICAN 71 mL/min (90-120)
[2018-11-05 16:19] LABS: CKMB 0.7 U/L (0.0-3.6); CREATINE KINASE 19 UL (21-215); TROPONIN-I < 0.017 ng/mL (0.000-0.060)
--- NOTE | 2018-11-05 16:28 | NUR ---
PT REPORTS THAT CP DECREASED IN PAIN FROM 8/10 TO 3/10. PT DECLINED SECOND PRN NITRO, ORDERED MORPHINE ADMINISTERED.
[2018-11-05 16:30] VITALS: BP 115/77
[2018-11-05 17:00] VITALS: BP 133/90
[2018-11-05 17:16] LABS: CKMB 0.5 U/L (0.0-3.6); CREATINE KINASE 18 UL (21-215)
[2018-11-05 17:22] LABS: TROPONIN-I < 0.017 ng/mL (0.000-0.060)
[2018-11-05 18:01] VITALS: BP 124/73
--- NOTE | 2018-11-05 18:20 | NUR ---
ROOM 2123 ASSIGNED AT 1733 AND MARKED DIRTY, ED NURSE CALLED REPORT TO RADHA AT 1756. PT GIVEN [facility] TRAY AT APPROX. 1810 REQUIESTED. PT WILL BE TRANSPORTED TO ASSIGNED ROOM ONCE 2123 IS CLEAN AND READY FOR PT. PT CURRENTLY SITTING UPRIGHT IN BED, RESPIRATIONS EVEN AND UNLABORED. PT DENIES ANY NEEDS AT THIS TIME.
--- NOTE | 2018-11-05 18:50 | NUR ---
RECIEVED FROM ER. AWAKE AND ALERT. C/0 PAIN AT AT 2 OUT OF 10 TO HER CHEST AND TO BETWEEN HER SHOULDERS. WILL MONITOR
--- NOTE | 2018-11-05 19:45 | NUR ---
RESUMING PATIENT CARE. PATIENT IS ALERT AND ORIENTED, RESTING COMFORTABLY IN BED. NO S/S OF DISTRESS. NO C/O PAIN. DENIES NEEDS AT THIS TIME. SIGNIFICANT OTHER AT BEDSIDE. CALL LIGHT WITHIN REACH. WILL CPOC.
[2018-11-05 20:00] VITALS: BP 110/70
[2018-11-05] MEDS ORDERED: LISINOPRIL10 MG PO (20:21)
[2018-11-05 23:22] LABS: CKMB 0.6 U/L (0.0-3.6); CREATINE KINASE 20 UL (21-215)
[2018-11-05 23:23] LABS: TROPONIN-I < 0.017 ng/mL (0.000-0.060)
[2018-11-06] VITALS: BP 110/61
[2018-11-06 01:05] VITALS: BP 110/70; Ht 165.1 cm; Wt 77.3 kg
[2018-11-06 04:00] VITALS: BP 127/82
[2018-11-06 07:04] LABS: BASOPHILS 0.3 % (0-2); EOSINOPHILS 1.4 % (0-7); HEMATOCRIT 38.9 % (36.0-48.0); HEMOGLOBIN 13.2 g/dL (12-16); IMMATURE GRANULOCYTES 0.2 % (0-5); LYMPHOCYTES 30.9 % (15-50); MCH 30.8 pg (26.0-34.0); MCHC 33.9 g/dL (31.0-37.0); MEAN PLATELET VOLUME 10.8 fL (7.4-10.4); MONOCYTES 8.1 % (2-11); NEUTROPHILS 59.1 % (40-80); PLATELET COUNT 298 10x3/uL (130-400); RBC 4.29 10x6/uL (4.00-5.40); RDW 12.8 % (11.5-14.5); WBC 10.8 10x3/uL (4.8-10.8)
[2018-11-06 07:28] LABS: MCV 90.7 fL (80.0-100.0)
--- NOTE | 2018-11-06 07:30 | NUR ---
AWAKE AND ALERT. DENIES ANY NEEDS. TELEMERTY SHOWS SR. LEFT AC SL. FAMILY AT BEDSIDE. WILL MONITOR
[2018-11-06 07:39] LABS: ALBUMIN 3.1 g/dL (3.4-5.0); ALKALINE PHOSPHATASE 68 U/L (46-116); ALT (SGPT) 30 U/L (10-68); BILIRUBIN - TOTAL 0.69 mg/dL (0.2-1.3); CALC OSMOLALITY 284 mosm/kg (275-300); CALCIUM 8.4 mg/dL (8.5-10.1); CARBON DIOXIDE 26.2 mmol/L (21.0-32.0); CHLORIDE - SERUM 105 mmol/L (98-107); CKMB 0.9 U/L (0.0-3.6); CREATINE KINASE 18 UL (21-215); CREATININE - SERUM 0.8 mg/dL (0.6-1.3); GLUCOSE 93 mg/dL (74-106); POTASSIUM - SERUM 4.1 mmol/L (3.5-5.1); PROTEIN - SERUM 6.8 g/dL (6.4-8.2); SODIUM 141 mmol/L (136-145); UREA NITROGEN 23 mg/dL (7-18); eGFR NON AFRICAN AMERICAN 81 mL/min (90-120)
[2018-11-06 07:41] LABS: TROPONIN-I < 0.017 ng/mL (0.000-0.060)
--- NOTE | 2018-11-06 08:50 | NUR ---
PRE OPTED FOR WOODWORKING SHOP HAND.
[2018-11-06 09:13] VITALS: BP 115/73
--- NOTE | 2018-11-06 10:53 | NUR ---
BACK FROM LAN ANALYST. V/S STABLE. TELEMERTY SHOWS SR. RIGHT ARM TR BAND IN PLACE. NO BLEEDING OE SWELLING AT CATH SITE. FAMILY AT BEDSIDE
--- NOTE | 2018-11-06 11:00 | NUR ---
RESTING QUIETLY NAD NOTED
--- NOTE | 2018-11-06 15:05 | NUR ---
PT DISCHARGED. TR BAND REMOVED WITH NO BLEEDING OR SWELLING NOTED. INSTRUCTIONS GIVE TO PT AND FAMILY. TO PRIVATE CAR PER WHEELCHAIR
--- NOTE | 2018-11-09 09:10 | MORECARE ---
CASE MANAGEMENT DISCHARGE SUMMARY PATIENT: RADHA BARRAZA UNIT: [id number] ADM DATE: 11/05/18 AGE: 48 : 72 SEX: F ROOM/BED: D.1232 AUTHOR: MADDIE MORE PHYSICIAN: REFERRING PHYSICIAN: LAURA RIDDLE MD DATE OF SERVICE: 11/09/18 Discharge Plan Patient Name: RADHA BARRAZA [facility] [facility] 1970 Planned Disposition: Home Anticipated Discharge Date: 11/06/18 Discharge Date: 11/06/2018 Expected LOS: 1 Initial Reviewer: [email or web address] Initial Review Date: 11/09/2018 Generated: 11/09/18 10:10 am Patient Name: RADHA BARRAZA Page [id number] at 0910 All edits/amendments must be made on the electronic document DICTATION DATE: 11/09/18909 BANANA CARRIER: OSCAR 11/09/18909 RPT#: [id number] DC DATE:11/06/18 STATUS: DIS IN [facility] [address] [place] [address] END OF REPORT
--- NOTE | 2018-11-09 11:45 | HP ---
PATIENT: RADHA CISNEROS MEDICAL RECORD: [id number] ACCOUNT: [id number] LOCATION:[address] : 72 ADMISSION DATE: 11/05/18 PCP: GRACY HICKS MD HISTORY AND PHYSICAL EXAMINATION ADMITTING DIAGNOSES: 1. Chest pain compatible with angina. 2. Coronary artery disease. 3. Recent percutaneous transluminal coronary angioplasty stent of the left anterior descending. 4. Hypertension. 5. Hyperlipidemia. HISTORY OF PRESENT ILLNESS: Mrs. Cisneros presents with recurrent chest discomfort. She presented earlier in the week with recurrent chest discomfort, found to be hypertensive, started on lisinopril and metoprolol. Her systolic blood pressure is now in the 100-110 range, heart rate is in the 70 range, sinus, but she continues to have chest pain. She underwent PTCA stent of the LAD last week. She has no EKG changes. REVIEW OF SYSTEMS: The patient reports easy bruising but reports no swollen glands. The patient reports no fever, no night sweats, no significant weight gain, no significant weight loss. No significant exercise tolerance. The patient reports no dry eyes, no irritation, no vision change. Patient reports no difficulty hearing and no ear pain. Patient reports no frequent nose bleeds or nose and sinus problems. Patient reports on arm pain on exertion. No shortness of breath while lying down. No history of heart murmur. Patient reports no cough, no wheezing or coughing up blood. Patient reports no abdominal pain, no vomiting. Normal appetite. No diarrhea and not vomiting blood. No nausea and no constipation. Patient reports no incontinence. No difficulty urinating. No hematuria. No increased frequency. Patient reports no muscle aches. No weakness, no arthralgias, no back pain. No swelling of the extremities. Patient reports no abnormal mole, no jaundice, no rashes. Reports no loss of consciousness. No weakness and no numbness. No seizures, dizziness, or headaches. The patient reports no depression, no sleep disturbance, feeling safe in a relationship and no alcohol abuse. Patient reports on fatigue. Reports no runny nose or sinus pressure. No itching, no hives, and no frequent sneezing. PHYSICAL EXAMINATION: GENERAL APPEARANCE: Well-nourished, well-developed, appears stated age. Level of distress, comfortable. PSYCHIATRIC: Mental status, alert, normal affect. Orientation, oriented to time, place and person. EYES: Lids and conjunctiva, noninjected. No discharge, no pallor. ENT: Lips, teeth, gums, normal dentition. Oropharynx, no cyanosis, no pallor. NECK: Carotid arteries, bilateral normal upstroke, no bruits, no thrills. JUGULAR VEINS: No jugular venous pressure or distention. CERVICAL LYMPH NODES: Nontender, nonenlarged. THYROID: Not enlarged. Nontender. No nodules. LUNGS: Respiratory effort, unlabored. CHEST: Normal curvature. No thoracic deformity. No chest wall tenderness. Percussion, resonant. Auscultation, clear. No wheezes, no rales, no rhonchi. CARDIOVASCULAR: Precordial exam, nondisplaced. No heaves or pericardial thrills. Rate and rhythm, regular. Heart sounds, normal S1, normal S2. No S3, HISTORY AND PHYSICAL [id number] RADHA CSINEROS no gallop, no rub. Systolic murmur, not heard. Diastolic murmur, not heard. EXTREMITIES: No cyanosis, no edema. Peripheral pulses, full and equal in all extremities, except as noted. No bruits appreciated. ABDOMEN: Soft, nondistended. Normal aorta. No bruit. Nontender. No masses. Liver, nontender, no hepatomegaly. Spleen, nontender, no splenomegaly. MUSCULOSKELETAL: No joint tenderness. No joint swelling. No erythema. NEUROLOGICAL: Normal gait, normal strength, normal tone. SKIN: Warm and dry. OVERALL IMPRESSION: Anginal symptomatology with recent percutaneous transluminal coronary angioplasty stent to the left anterior descending. We will proceed with repeat coronary angiography to ensure patency of the stent. Further care depends upon the findings of the angiography. TRANSINT:[id number] Voice Confirmation ID: [id number] DOCUMENT ID: [id number] LAURA RIDDLE MD at 1145 CC: [id number] DICTATION DATE: 11/06/18 1027 PRINCIPAL DATABASE DEVELOPER: 11/06/18 1121 DIS IN 11/06/18 [facility] [address] [place] [address]
--- NOTE | 2018-11-09 11:46 | OP ---
PATIENT NAME: RADHA BARRAZA MEDICAL RECORD: [id number] :72 LOCATION:D.M2 D.2123 ADMISSION DATE:11/05/18 SURGEON: LAURA RIDDLE MD DATE OF OPERATION: 11/06/2018 PROCEDURES: 1. Left heart catheterization. 2. Selective coronary angiography. 3. Left ventriculogram. INDICATION: Chest pain, coronary artery disease, hypertension and hyperlipidemia. PROCEDURE: After informed consent was obtained and after a detailed description of the risks, benefits as well as alternative therapies, the patient elected to proceed with angiogram and heart catheterization. The right radial area was prepped and draped in normal sterile fashion. Right radial artery was cannulated via modified Seldinger technique with placement of 6-Georgian sheath. All catheters exchanged through this sheath. FINDINGS: The left ventriculogram was performed in standard 30-degree [place] view, reveals good cardiac wall motion throughout all segments. Overall ejection fraction estimated 60%. SELECTIVE CORONARY ANGIOGRAPHY: 1. Left main showed no significant angiographic disease. 2. Left anterior descending has previously placed stent. This is widely patent with no disease elsewise throughout the LAD or its branches. 3. Left circumflex has moderate irregularities, but no flow-limiting stenosis. 4. Right coronary artery has moderate irregularities, but no flow-limiting stenosis. OVERALL IMPRESSION: Wide patency of the previously placed stent, no disease elsewise. Chest pain is noncardiac in etiology. TRANSINT:[id number] Voice Confirmation ID: [id number] DOCUMENT ID: [id number] LAURA RIDDLE MD at 1146 CC: [id number] DICTATION DATE: 11/06/18 1029 EMT I/85: 11/06/18 1122 DIS IN 11/06/18 [place] [id number] [place] [id number]
--- NOTE | 2018-11-09 11:46 | DS ---
PATIENT:RADHA CISNEROS :72 MEDICAL RECORD: [id number] DISCHARGE SUMMARY ADMISSION DATE: 11/05/18 DISCHARGE DATE: 11/06/18 DISCHARGE DIAGNOSES: 1. Chest pain. 2. Coronary artery disease. 3. Hypertension. 4. Hyperlipidemia. HOSPITAL COURSE: Ms. Cisneros presents with chest pain symptomatology; however, wide patency of the previously placed stent in the LAD. No disease elsewise. Standard medical management and treatment of GERD, etiology of chest pain. Continue her current medications, which are metoprolol and lisinopril as her heart rate and blood pressure are optimal. Follow up as previously scheduled with [facility]. TRANSINT:[id number] Voice Confirmation ID: [id number] DOCUMENT ID: [id number] LAURA RIDDLE MD at 1146 CC: [id number] DICTATION DATE: 11/06/18 1028 PROCUREMENT SPECIALIST: 11/07/18 0031 DIS IN 11/06/18 [place] [id number] [place] [address]
== END 2018-11-06 15:14 | disposition home or self-care (01) ==
LOC: D.ER 15:15 → D.EDHOLD 16:30 → D.M2 16:30 → OBSVTIME 16:30 → D.M2 16:30
PROVIDERS: Family Medicine; ADMIT Internal Medicine Interventional Cardiology
DX: K21.9 Gastro-esophageal reflux disease without esophagitis (principal); I25.119 Atherosclerotic heart disease of native coronary artery with unspecified angina pectoris; I10 Essential (primary) hypertension; E78.5 Hyperlipidemia, unspecified

== ENCOUNTER 2018-12-03 08:21 | Emergency (ER) | payer MEDICAID ==
[~2018-12-03] VITALS: Ht 165.1 cm; Wt 79.5 kg
[2018-12-03 09:01] VITALS: Ht 165.1 cm; Wt 79.5 kg
[2018-12-03] MEDS ORDERED: BAYER CHEWABLE81 MG PO (09:06)
[2018-12-03] MEDS ORDERED: CARAFATE1 G PO (09:07)
[2018-12-03 09:50] LABS: ALBUMIN 3.4 g/dL (3.4-5.0); ALKALINE PHOSPHATASE 75 U/L (46-116); ALT (SGPT) 23 U/L (10-68); BILIRUBIN - TOTAL 0.55 mg/dL (0.2-1.3); CALC OSMOLALITY 278 mosm/kg (275-300); CALCIUM 8.4 mg/dL (8.5-10.1); CARBON DIOXIDE 24.6 mmol/L (21.0-32.0); CHLORIDE - SERUM 106 mmol/L (98-107); CREATININE - SERUM 0.7 mg/dL (0.6-1.3); GLUCOSE 103 mg/dL (74-106); POTASSIUM - SERUM 4.1 mmol/L (3.5-5.1); PROTEIN - SERUM 7.2 g/dL (6.4-8.2); SODIUM 140 mmol/L (136-145); UREA NITROGEN 12 mg/dL (7-18); eGFR NON AFRICAN AMERICAN > 90 mL/min (90-120)
[2018-12-03 09:53] LABS: AMYLASE - SERUM 40 U/L (25-115); LIPASE 213 U/L (73-393); TROPONIN-I < 0.017 ng/mL (0.000-0.060)
[2018-12-03 09:58] LABS: APPEARANCE CLEAR (CLEAR); BILIRUBIN NEGATIVE (NEGATIVE); COLOR YELLOW (YELLOW); GLUCOSE NEGATIVE (NEGATIVE); KETONE NEGATIVE (NEGATIVE); NITRITE NEGATIVE (NEGATIVE); PROTEIN NEGATIVE (NEGATIVE); UROBILINOGEN NORMAL (NORMAL)
[2018-12-03 10:06] LABS: HEMOGLOBIN 12.5 g/dL (12-16); LYMPHOCYTES 36.6 % (15-50); MCH 30.7 pg (26.0-34.0); MCHC 34.7 g/dL (31.0-37.0); MCV 88.5 fL (80.0-100.0); MEAN PLATELET VOLUME 10.2 fL (7.4-10.4); NEUTROPHILS 54.4 % (40-80); PLATELET COUNT 275 10x3/uL (130-400); RBC 4.07 10x6/uL (4.00-5.40); RDW 12.2 % (11.5-14.5); WBC 7.4 10x3/uL (4.8-10.8)
[2018-12-03] MEDS ORDERED: PEPCID40 MG PO (13:51)
[2018-12-03 14:32] VITALS: BP 121/78
== END 2018-12-03 14:10 | disposition home or self-care (01) ==
LOC: D.ER 08:21
PROVIDERS: Family Medicine
DX: K29.70 Gastritis, unspecified, without bleeding (principal); R10.13 Epigastric pain

== ENCOUNTER → 2018-12-21 12:40 | Outpatient (CLI) | payer MEDICAID ==
[2018-12-03 09:01] VITALS: BMI 29.1
[~2018-12-21 12:40] MED LIST changes: +CARAFATE1 G PO; +PEPCID40 MG PO
== END | disposition home or self-care (01) ==
LOC: D.NM 12:40
PROVIDERS: ATTEND Family Medicine
DX: K30 Functional dyspepsia (principal)

== ENCOUNTER 2019-01-08 08:41 | Emergency (ER) | payer MEDICAID ==
[~2019-01-08] VITALS: Ht 165.1 cm; Wt 77.3 kg
--- NOTE | ~2019-01-08 | CN ---
PATIENT NAME:RADHA CISNEROS MEDICAL RECORD: [id number] : 72 LOCATION:D.ER ADMIT DATE: ACCOUNT: [id number] CONSULTING PHYSICIAN: LAURA RIDDLE MD REFERRING PHYSICIAN: AMARILIS ALEXANDRE MD DATE OF CONSULTATION: 01/08/2019 DIAGNOSES: 1. Angina. 2. Tachycardia. 3. Hypertension. 4. Coronary artery disease. 5. Previous percutaneous transluminal coronary angioplasty stent. 6. Hyperlipidemia. HISTORY OF PRESENT ILLNESS: Mrs. Cisneros is status post PTCA stent in September. She had a recurrent episode of chest pain in October, which she was in [facility] due to repeat catheterization. This was normal. The was end of October. She has had intermittent chest pain. She as well has tachycardia, as well as anxiety with her complete cardiac issue. She presents today with chest pain. She has a normal EKG, normal troponin, has been having the chest pain intermittently for the last few days. She is quite tachycardic at 110 beats per minute at rest. She states that when she does anything, her heart rate goes up further. She is not on a beta-mukesh or any medication for hypertension. PHYSICAL EXAMINATION: GENERAL APPEARANCE: Well-nourished, well-developed, appears stated age. Level of distress, comfortable. PSYCHIATRIC: Mental status, alert, normal affect. Orientation, oriented to time, place and person. EYES: Lids and conjunctiva, noninjected. No discharge, no pallor. ENT: Lips, teeth, gums, normal dentition. Oropharynx, no cyanosis, no pallor. NECK: Carotid arteries, bilateral normal upstroke, no bruits, no thrills. JUGULAR VEINS: No jugular venous pressure or distention. CERVICAL LYMPH NODES: Nontender, nonenlarged. THYROID: Not enlarged. Nontender. No nodules. LUNGS: Respiratory effort, unlabored. CHEST: Normal curvature. No thoracic deformity. No chest wall tenderness. Percussion, resonant. Auscultation, clear. No wheezes, no rales, no rhonchi. CARDIOVASCULAR: Precordial exam, nondisplaced. No heaves or pericardial thrills. Rate and rhythm, regular. Heart sounds, normal S1, normal S2. No S3, no gallop, no rub. Systolic murmur, not heard. Diastolic murmur, not heard. EXTREMITIES: No cyanosis, no edema. Peripheral pulses, full and equal in all extremities, except as noted. No bruits appreciated. ABDOMEN: Soft, nondistended. Normal aorta. No bruit. Nontender. No masses. Liver, nontender, no hepatomegaly. Spleen, nontender, no splenomegaly. MUSCULOSKELETAL: No joint tenderness. No joint swelling. No erythema. NEUROLOGICAL: Normal gait, normal strength, normal tone. SKIN: Warm and dry. OVERALL IMPRESSION: Anxiety, tachycardia, hypertension. At this time, we will treat medically for the anxiety and the tachycardia. We will start her on Toprol 50 mg a day. We will see her back next week in the clinic to see if her symptomatology resolves with beta blockade therapy. CONSULT REPORT [id number] RADHA CISNEROS TRANSINT:[id number] Voice Confirmation ID: [id number] DOCUMENT ID: [id number] LAURA RIDDLE MD CC: [id number] DICTATION DATE: 01/08/19 1007 SEARCH STRATEGIST: 01/08/19 1155 [facility] ER 01/08/19 [place] [id number] [place] [address]
[2019-01-08 08:44] VITALS: Ht 165.1 cm; Wt 77.3 kg
[2019-01-08 09:07] LABS: BASOPHILS 0.4 % (0-2); HEMOGLOBIN 13.1 g/dL (12-16); IMMATURE GRANULOCYTES 0.3 % (0-5); LYMPHOCYTES 48.9 % (15-50); MCH 30.4 pg (26.0-34.0); MCHC 34.5 g/dL (31.0-37.0); MCV 88.2 fL (80.0-100.0); MEAN PLATELET VOLUME 10.5 fL (7.4-10.4); MONOCYTES 9.1 % (2-11); NEUTROPHILS 39.3 % (40-80); PLATELET COUNT 303 10x3/uL (130-400); RBC 4.31 10x6/uL (4.00-5.40); RDW 12.2 % (11.5-14.5); WBC 7.4 10x3/uL (4.8-10.8)
[2019-01-08 09:19] LABS: APTT 34.5 SECONDS (22.8-39.4); PROTIME 12.7 SECONDS (11.6-15.0)
[2019-01-08 09:26] LABS: ALBUMIN 3.5 g/dL (3.4-5.0); ALKALINE PHOSPHATASE 82 U/L (46-116); ALT (SGPT) 20 U/L (10-68); BILIRUBIN - TOTAL 0.86 mg/dL (0.2-1.3); CALC OSMOLALITY 282 mosm/kg (275-300); CALCIUM 8.9 mg/dL (8.5-10.1); CARBON DIOXIDE 26.5 mmol/L (21.0-32.0); CHLORIDE - SERUM 106 mmol/L (98-107); CREATININE - SERUM 0.7 mg/dL (0.6-1.3); GLUCOSE 93 mg/dL (74-106); POTASSIUM - SERUM 3.8 mmol/L (3.5-5.1); PROTEIN - SERUM 7.5 g/dL (6.4-8.2); SODIUM 142 mmol/L (136-145); UREA NITROGEN 13 mg/dL (7-18); eGFR NON AFRICAN AMERICAN > 90 mL/min (90-120)
[2019-01-08 09:36] LABS: CKMB 0.6 U/L (0.0-3.6); CREATINE KINASE 35 UL (21-215)
[2019-01-08 09:40] LABS: TROPONIN-I < 0.017 ng/mL (0.000-0.060)
[2019-01-08 10:23] VITALS: BP 149/97
== END 2019-01-08 10:36 | disposition home or self-care (01) ==
LOC: D.ER 08:41
PROVIDERS: Family Medicine
DX: R07.9 Chest pain, unspecified (principal); I10 Essential (primary) hypertension; I25.10 Atherosclerotic heart disease of native coronary artery without angina pectoris

== ENCOUNTER 2019-05-22 19:40 | Emergency (ER) | payer MEDICAID ==
[~2019-05-22] VITALS: Ht 165.1 cm; Wt 76.4 kg
[2019-05-22 19:43] VITALS: Ht 165.1 cm; Wt 76.4 kg
[2019-05-22] MEDS ORDERED: OMEPRAZOLE40 MG PO (19:45)
[2019-05-22] MEDS ORDERED: ADIPEX-P37.5 MG PO (19:46)
[2019-05-22] MEDS ORDERED: CATAPRES0.1 MG PO (19:46)
[2019-05-22 20:08] LABS: BASOPHILS 0.4 % (0-2); EOSINOPHILS 1.3 % (0-7); HEMATOCRIT 37.8 % (36.0-48.0); HEMOGLOBIN 13.3 g/dL (12-16); IMMATURE GRANULOCYTES 0.3 % (0-5); MCH 28.7 pg (26.0-34.0); MCHC 35.2 g/dL (31.0-37.0); MCV 81.6 fL (80.0-100.0); MEAN PLATELET VOLUME 10.3 fL (7.4-10.4); MONOCYTES 6.7 % (2-11); NEUTROPHILS 44.3 % (40-80); PLATELET COUNT 349 10x3/uL (130-400); RBC 4.63 10x6/uL (4.00-5.40); WBC 9.8 10x3/uL (4.8-10.8)
[2019-05-22 20:18] LABS: APTT 36.6 SECONDS (22.8-39.4); INR 1.03 (0.85-1.17)
[2019-05-22 20:19] LABS: D-DIMER-QUANTITATIVE 0.49 ug/mLFEU (0.20-0.54)
[2019-05-22 20:25] LABS: ALBUMIN 3.8 g/dL (3.4-5.0); ALKALINE PHOSPHATASE 92 U/L (46-116); ALT (SGPT) 27 U/L (10-68); BILIRUBIN - TOTAL 0.79 mg/dL (0.2-1.3); CALC OSMOLALITY 277 mosm/kg (275-300); CALCIUM 9.4 mg/dL (8.5-10.1); CARBON DIOXIDE 17.2 mmol/L (21.0-32.0); CHLORIDE - SERUM 107 mmol/L (98-107); GLUCOSE 108 mg/dL (74-106); POTASSIUM - SERUM 3.4 mmol/L (3.5-5.1); PROTEIN - SERUM 7.7 g/dL (6.4-8.2); SODIUM 138 mmol/L (136-145); UREA NITROGEN 15 mg/dL (7-18); eGFR NON AFRICAN AMERICAN 63 mL/min (90-120)
[2019-05-22 20:41] LABS: CKMB 2.5 U/L (0.0-3.6); CREATINE KINASE 160 UL (21-215); PRO BNP 30 pg/mL (0-125); TROPONIN-I < 0.017 ng/mL (0.000-0.060)
[2019-05-22 22:10] VITALS: BP 129/84
== END 2019-05-22 22:11 | disposition home or self-care (01) ==
LOC: D.ER 19:40
PROVIDERS: Family Medicine
DX: F41.0 Panic disorder [episodic paroxysmal anxiety] (principal); E87.3 Alkalosis; R06.82 Tachypnea, not elsewhere classified

== ENCOUNTER 2019-05-25 11:51 | Emergency (ER) | payer MEDICAID ==
[~2019-05-25] VITALS: Ht 165.1 cm; Wt 76.4 kg
[~2019-05-25 11:51] MED LIST changes: +ADIPEX-P37.5 MG PO
[2019-05-25 11:53] VITALS: Ht 165.1 cm; Wt 76.4 kg
[2019-05-25 12:27] LABS: BASOPHILS 0.3 % (0-2); EOSINOPHILS 1.2 % (0-7); HEMATOCRIT 37.8 % (36.0-48.0); HEMOGLOBIN 13.5 g/dL (12-16); IMMATURE GRANULOCYTES 0.1 % (0-5); LYMPHOCYTES 48.7 % (15-50); MCH 29.2 pg (26.0-34.0); MCHC 35.7 g/dL (31.0-37.0); MCV 81.6 fL (80.0-100.0); MONOCYTES 5.8 % (2-11); NEUTROPHILS 43.9 % (40-80); PLATELET COUNT 331 10x3/uL (130-400); RBC 4.63 10x6/uL (4.00-5.40); RDW 13.8 % (11.5-14.5); WBC 8.6 10x3/uL (4.8-10.8)
[2019-05-25 12:39] LABS: APTT 35.6 SECONDS (22.8-39.4); INR 1.03 (0.85-1.17)
[2019-05-25 12:43] LABS: ALBUMIN 3.9 g/dL (3.4-5.0); ALKALINE PHOSPHATASE 90 U/L (46-116); ALT (SGPT) 25 U/L (10-68); CALC OSMOLALITY 277 mosm/kg (275-300); CALCIUM 9.3 mg/dL (8.5-10.1); CARBON DIOXIDE 22.1 mmol/L (21.0-32.0); CHLORIDE - SERUM 105 mmol/L (98-107); CREATININE - SERUM 0.8 mg/dL (0.6-1.3); GLUCOSE 91 mg/dL (74-106); POTASSIUM - SERUM 3.2 mmol/L (3.5-5.1); PROTEIN - SERUM 7.9 g/dL (6.4-8.2); SODIUM 140 mmol/L (136-145); UREA NITROGEN 10 mg/dL (7-18); eGFR NON AFRICAN AMERICAN 81 mL/min (90-120)
[2019-05-25 12:56] LABS: CKMB 1.3 U/L (0.0-3.6); CREATINE KINASE 74 UL (21-215); PRO BNP 39 pg/mL (0-125); TROPONIN-I < 0.017 ng/mL (0.000-0.060)
[2019-05-25] MEDS ORDERED: ALBUTEROL SULF8.5 GM INH (14:07)
[2019-05-25] MEDS ORDERED: AUGMENTIN 875-11 TAB PO (14:07)
[2019-05-25] MEDS ORDERED: TESSALON PERLE100 MG PO (14:07)
[2019-05-25 14:29] VITALS: BP 135/74
== END 2019-05-25 14:29 | disposition home or self-care (01) ==
LOC: D.ER 11:51
PROVIDERS: Family Medicine
DX: R05 Cough (principal); J40 Bronchitis, not specified as acute or chronic; R06.02 Shortness of breath